=== PATIENT | male | born 1945 | race Caucasian/White ===

== ENCOUNTER 2017-01-27 10:00 | Outpatient (RCR) | payer MEDICARE, BC | END 2017-01-27 11:27 | disposition home or self-care (01) | LOC: PT 10:00 | DX: M25.562 Pain in left knee (principal); M17.12 Unilateral primary osteoarthritis, left knee ==

== ENCOUNTER 2017-11-03 10:30 | Outpatient (RCR) | payer MEDICARE, BC | END 2017-11-03 11:00 | disposition still patient (30) | LOC: PT 10:30 | DX: Z47.1 Aftercare following joint replacement surgery (principal); Z96.652 Presence of left artificial knee joint | CPT/HCPCS: G8978-GP; G8979-GP ==

== ENCOUNTER 2018-11-22 18:25 | Inpatient (IN) | payer MEDICARE, BC ==
[~2018-11-22] VITALS: Ht 180.3 cm; Wt 98.4 kg
[2018-11-23 16:00] VITALS: BP 116/79; BP 168/97
[2018-11-23] MEDS ORDERED: LASIX20 M1 PO (16:28)
[2018-11-23] MEDS ORDERED: KLOR-CON 1010 MEQ ×2 (16:28→16:29)
[2018-11-23] MEDS ORDERED: ULTRAM50 M1 PO (16:30)
[2018-11-23] MEDS ORDERED: METOPROLOL TAR100 M1 PO (16:32)
[2018-11-23] MEDS ORDERED: PHARMASSURE FIS1 SGL PO (16:33)
[2018-11-23] MEDS ORDERED: PROAIR HFA0.09 MG/AC IH (16:33)
[2018-11-23] MEDS ORDERED: CHILDREN'S ASPI81 M1 PO (16:33)
[2018-11-23] MEDS ORDERED: FLUVASTATIN40 MG PO (16:33)
[2018-11-23] MEDS ORDERED: MULTIVITAMIN1 SGL PO (16:34)
[2018-11-23] MEDS ORDERED: OMEPRAZOLE40 MG PO (16:44)
[2018-11-23] MEDS ORDERED: PROBIOTIC1 EAC1 PO (16:44)
[2018-11-23] MEDS ORDERED: NITRO-DUR1 EACH TD (16:44)
[2018-11-23] MEDS ORDERED: THEO-24 30300 MG/CAP PO (16:45)
[2018-11-23] MEDS ORDERED: VENLAFAXINE225 MG PO (16:46)
[2018-11-23] MEDS ORDERED: MASON NATURAL2000 IU PO (16:51)
[2018-11-23] MEDS ORDERED: VITAMIN C PURE500 M1 PO (16:51)
[2018-11-23] MEDS ORDERED: CORTIZONE-1028 GM TP (16:53)
[2018-11-23 18:37] VITALS: BP 92/66
[2018-11-23 18:45] VITALS: BP 117/81
[2018-11-24 06:23] VITALS: BP 137/80
[2018-11-24 06:27] LABS: URINE APPEARANCE CLEAR; URINE BILIRUBIN NEGATIVE (NEGATIVE); URINE BLOOD NEGATIVE (NEGATIVE); URINE COLOR YELLOW; URINE GLUCOSE NEGATIVE (NEGATIVE); URINE KETONE NEGATIVE (NEGATIVE); URINE LEUKOCYTE ESTERASE NEGATIVE (NEGATIVE); URINE NITRATE NEGATIVE (NEGATIVE); URINE PROTEIN(semi-quant) NEGATIVE (NEGATIVE); URINE UROBILINOGEN NORMAL (NORMAL); URINE WBC 0 /hpf (0-3)
[2018-11-24 07:29] LABS: ALBUMIN 3.6 g/dL (3.5-5.0); CALCIUM 9.2 mg/dL (8.4-10.2); TOTAL BILIRUBIN 0.7 mg/dL (0.2-1.3); TOTAL PROTEIN 6.6 g/dL (6.3-8.2)
[2018-11-24 08:06] LABS: HEMATOCRIT 29.2 % (42.0-52.0); HEMOGLOBIN 9.2 g/dL (13.5-18.0); MEAN CELL VOLUME 90 fl (78-100); MEAN CORPUSCULAR HEMOGLOBIN 29 pg (27-31); MEAN CORPUSCULAR HGB CONC 32 g/dL (33-37); MEAN PLATELET VOLUME 11.4 fl (7.4-10.4); PLATELET COUNT 204 K/mm3 (130-400); RED BLOOD COUNT 3.23 M/mm3 (4.20-5.60); RED CELL DISTRIBUTION WIDTH 14.3 % (11.5-14.5); WHITE BLOOD COUNT 5.1 K/mm3 (4.8-10.8)
[2018-11-24 09:14] LABS: BAND 1 % (0-10); LYMPHOCYTE 21 % (20-51); MONOCYTE 9 % (3-10); NEUTROPHILS 57 % (42-75)
[2018-11-24 09:15] LABS: MYELOCYTE 2 % (0-0); NUCLEATED RED BLOOD CELL 1 (0-6); POLYCHROMASIA 1+
[2018-11-24 18:31] VITALS: BP 127/78
[2018-11-25 06:11] VITALS: BP 115/85
[2018-11-25 18:26] VITALS: BP 113/70
[2018-11-26 06:12] VITALS: BP 94/60
[2018-11-26 18:16] VITALS: BP 122/73
[2018-11-27 06:21] VITALS: BP 130/79
[2018-11-27 18:49] VITALS: BP 107/62
[2018-11-28 05:58] VITALS: BP 119/77
[2018-11-28 18:00] VITALS: BP 106/71
[2018-11-29 06:21] VITALS: BP 106/68
[2018-11-29 16:57] VITALS: BP 101/65
[2018-11-30 06:21] VITALS: BP 103/65
[2018-11-30] MEDS ORDERED: ULTRAM50 M1 PO (13:15)
[2018-11-30] MEDS ORDERED: TRAMADOL 50 MG TAB PO (13:15)
[2018-11-30] MEDS ORDERED: KLOR-CON 1010 MEQ PO (13:15)
[2018-11-30] MEDS ORDERED: METOPROLOL TAR100 M1 PO (13:15)
[2018-11-30] MEDS ORDERED: LASIX20 M1 PO (13:15)
== END 2018-11-30 13:00 | disposition home or self-care (01) | DRG 948 ==
LOC: MED/SURG 18:25
PROVIDERS: Nurse Practitioner Family; ADMIT Physician Assistant
DX: R53.81 Other malaise (principal); J90 Pleural effusion, not elsewhere classified; Z66 Do not resuscitate; I25.10 Atherosclerotic heart disease of native coronary artery without angina pectoris; Z95.1 Presence of aortocoronary bypass graft; I10 Essential (primary) hypertension; J44.9 Chronic obstructive pulmonary disease, unspecified; E78.2 Mixed hyperlipidemia; R73.03 Prediabetes; Z85.46 Personal history of malignant neoplasm of prostate; G47.33 Obstructive sleep apnea (adult) (pediatric); F32.9 Major depressive disorder, single episode, unspecified; R35.0 Frequency of micturition; R39.15 Urgency of urination; F17.210 Nicotine dependence, cigarettes, uncomplicated
CPT/HCPCS: J1650

== ENCOUNTER 2018-12-24 22:53 | Emergency (ER) | payer MEDICARE, BC ==
[~2018-12-24] VITALS: Ht 180.3 cm; Wt 97.7 kg
[~2018-12-24 22:53] MED LIST: CHILDREN'S ASPI81 M1 PO; CORTIZONE-1028 GM TP; FLUVASTATIN40 MG PO; KLOR-CON 1010 MEQ; KLOR-CON 1010 MEQ PO; LASIX20 M1 PO; MASON NATURAL2000 IU PO; METOPROLOL TAR100 M1 PO; MULTIVITAMIN1 SGL PO; NITRO-DUR1 EACH TD; OMEPRAZOLE40 MG PO; PHARMASSURE FIS1 SGL PO; PROAIR HFA0.09 MG/AC IH; PROBIOTIC1 EAC1 PO; THEO-24 30300 MG/CAP PO; TRAMADOL 50 MG TAB PO; ULTRAM50 M1 PO; VENLAFAXINE225 MG PO; VITAMIN C PURE500 M1 PO
[2018-12-24 23:31] LABS: HEMATOCRIT 38.7 % (42.0-52.0); HEMOGLOBIN 12.6 g/dL (13.5-18.0); MEAN CELL VOLUME 87 fl (78-100); MEAN CORPUSCULAR HEMOGLOBIN 28 pg (27-31); MEAN CORPUSCULAR HGB CONC 33 g/dL (33-37); MEAN PLATELET VOLUME 11.2 fl (7.4-10.4); PLATELET COUNT 141 K/mm3 (130-400); RED BLOOD COUNT 4.44 M/mm3 (4.20-5.60); RED CELL DISTRIBUTION WIDTH 13.9 % (11.5-14.5)
[2018-12-24 23:45] LABS: ALBUMIN 4.1 g/dL (3.5-5.0); CALCIUM 9.2 mg/dL (8.4-10.2); POTASSIUM 4.2 mmol/L (3.6-5.0); TOTAL BILIRUBIN 0.5 mg/dL (0.2-1.3); TOTAL PROTEIN 7.7 g/dL (6.3-8.2)
[2018-12-24 23:46] LABS: BAND 0 % (0-10); LYMPHOCYTE 20 % (20-51); MONOCYTE 17 % (3-10); NEUTROPHILS 52 % (42-75)
[2018-12-25 00:38] VITALS: BP 123/71
== END 2018-12-25 00:38 | disposition home or self-care (01) ==
LOC: ED 22:53
PROVIDERS: Family Medicine
DX: R07.89 Other chest pain (principal); I25.10 Atherosclerotic heart disease of native coronary artery without angina pectoris; I10 Essential (primary) hypertension; E78.5 Hyperlipidemia, unspecified; G47.30 Sleep apnea, unspecified; J44.9 Chronic obstructive pulmonary disease, unspecified; Z79.82 Long term (current) use of aspirin

== ENCOUNTER 2019-01-06 11:39 | Emergency (ER) | payer MEDICARE, BC ==
[~2019-01-06] VITALS: Ht 180.3 cm; Wt 101.3 kg
[2019-01-06] MEDS ORDERED: ACETAMINOPHEN500 M5 PO (12:13)
[2019-01-06] MEDS ORDERED: BENADRYL PO (12:14)
[2019-01-06] MEDS ORDERED: MUCUS RELIEF600 MG PO (12:16)
[2019-01-06] MEDS ORDERED: MOTRIN IB200 M2 PO (12:16)
[2019-01-06] MEDS ORDERED: LOVASTATIN40 M1 PO (12:17)
[2019-01-06 12:41] LABS: HEMATOCRIT 37.7 % (42.0-52.0); HEMOGLOBIN 12.6 g/dL (13.5-18.0); MEAN CELL VOLUME 84 fl (78-100); MEAN CORPUSCULAR HEMOGLOBIN 28 pg (27-31); MEAN CORPUSCULAR HGB CONC 33 g/dL (33-37); MEAN PLATELET VOLUME 11.6 fl (7.4-10.4); PLATELET COUNT 138 K/mm3 (130-400); RED BLOOD COUNT 4.48 M/mm3 (4.20-5.60); RED CELL DISTRIBUTION WIDTH 13.4 % (11.5-14.5); WHITE BLOOD COUNT 4.9 K/mm3 (4.8-10.8)
[2019-01-06 12:46] LABS: CALCIUM 9.7 mg/dL (8.8-10.0); POTASSIUM 3.9 mmol/L (3.5-5.1)
[2019-01-06 12:50] LABS: LYMPHOCYTE 25 % (20-51); MONOCYTE 16 % (3-10); NEUTROPHILS 55 % (42-75)
[2019-01-06 13:26] LABS: URINE APPEARANCE CLOUDY; URINE BILIRUBIN NEGATIVE (NEGATIVE); URINE BLOOD 250 ery/uL (NEGATIVE); URINE COLOR YELLOW; URINE GLUCOSE NEGATIVE (NEGATIVE); URINE KETONE NEGATIVE (NEGATIVE); URINE NITRATE NEGATIVE (NEGATIVE); URINE PROTEIN(semi-quant) 1+ mg/dL (NEGATIVE); URINE UROBILINOGEN NORMAL (NORMAL)
[2019-01-06 13:27] LABS: URINE LEUKOCYTE ESTERASE TRACE (NEGATIVE)
[2019-01-06 14:01] VITALS: BP 120/77
== END 2019-01-06 14:02 | disposition home or self-care (01) ==
LOC: ED 11:39
PROVIDERS: Family Medicine
DX: I82.402 Acute embolism and thrombosis of unspecified deep veins of left lower extremity (principal); R31.9 Hematuria, unspecified; I25.10 Atherosclerotic heart disease of native coronary artery without angina pectoris; G47.30 Sleep apnea, unspecified; Z79.82 Long term (current) use of aspirin; Z79.1 Long term (current) use of non-steroidal anti-inflammatories (NSAID); Z90.49 Acquired absence of other specified parts of digestive tract; Z95.5 Presence of coronary angioplasty implant and graft

== ENCOUNTER 2019-02-28 11:00 | Outpatient (RCR) | payer MEDICARE, BC ==
[~2019-02-28 11:00] MED LIST changes: +ACETAMINOPHEN500 M5 PO; +BENADRYL PO; +LOVASTATIN40 M1 PO; +MOTRIN IB200 M2 PO; +MUCUS RELIEF600 MG PO
== END 2019-02-28 12:00 | disposition still patient (30) ==
LOC: CARDREHAB 11:00
DX: Z95.1 Presence of aortocoronary bypass graft (principal)

== ENCOUNTER 2022-03-16 17:12 | Emergency (ER) | payer MEDICARE, BC ==
[2022-03-16 17:59] LABS: BASO # 0.02 K/mm3 (0.02-0.10); EOS # 0.09 K/mm3 (0.04-0.40); EOS % 1.8 % (0.0-4.0); HEMATOCRIT 36.7 % (42.0-52.0); HEMOGLOBIN 12.8 g/dL (13.5-18.0); LYMPH# 1.34 K/mm3 (1.50-4.00); MEAN CELL VOLUME 85 fl (78-100); MEAN CORPUSCULAR HEMOGLOBIN 30 pg (27-31); MEAN CORPUSCULAR HGB CONC 35 g/dL (33-37); MEAN PLATELET VOLUME 12.2 fl (7.4-10.4); MONO # 0.99 K/mm3 (0.20-0.80); NEU # 2.63 K/mm3 (1.40-6.50); PLATELET COUNT 101 K/mm3 (130-400); RED BLOOD COUNT 4.33 M/mm3 (4.20-5.60); RED CELL DISTRIBUTION WIDTH 12.6 % (11.5-14.5); WHITE BLOOD COUNT 5.1 K/mm3 (4.8-10.8)
[2022-03-16 18:11] LABS: ALBUMIN 3.6 g/dL (3.4-4.8)
[2022-03-16 18:12] LABS: POTASSIUM 4.3 mmol/L (3.5-5.1)
[2022-03-16 18:13] LABS: CALCIUM 9.1 mg/dL (8.3-10.5)
[2022-03-16 18:14] LABS: TOTAL PROTEIN 7.2 g/dL (6.2-8.1)
[2022-03-16 18:16] LABS: TOTAL BILIRUBIN 0.4 mg/dL (0.2-1.2)
[2022-03-16] MEDS ORDERED: YUPELRI175 MCG/3 IH (19:31)
[2022-03-16] MEDS ORDERED: MELOXICAM15 MG PO (19:31)
[2022-03-16] MEDS ORDERED: VENLAFAXINE HC100 MG PO (19:32)
[2022-03-16 19:36] LABS: PROTHROMBIN TIME 10.1 SECONDS (9.0-12.0)
[2022-03-16 19:39] LABS: D-DIMER 2.63 mg/L FEU (0.15-0.50)
[2022-03-16 21:33] VITALS: BP 122/68
== END 2022-03-16 21:33 | disposition home or self-care (01) ==
LOC: ED 17:12
PROVIDERS: Physician Assistant
DX: I82.451 Acute embolism and thrombosis of right peroneal vein (principal); I82.441 Acute embolism and thrombosis of right tibial vein; R79.1 Abnormal coagulation profile; Z87.891 Personal history of nicotine dependence; Z79.01 Long term (current) use of anticoagulants; Z91.040 Latex allergy status
CPT/HCPCS: J1650; Q9967

== ENCOUNTER 2023-12-26 11:07 | Outpatient (RCR) | payer MEDICARE, BC ==
[~2023-12-26 11:07] MED LIST changes: +MELOXICAM15 MG PO; +VENLAFAXINE HC100 MG PO; +YUPELRI175 MCG/3 IH
== END 2023-12-27 | disposition home or self-care (01) ==
LOC: PT
DX: M48.02 Spinal stenosis, cervical region (principal)

== ENCOUNTER 2024-01-03 08:00 | Outpatient (RCR) | payer MEDICARE, BC | END 2024-01-27 | LOC: PT | DX: M48.02 Spinal stenosis, cervical region (principal) ==

== ENCOUNTER 2024-05-19 10:40 | Emergency (ER) | payer MEDICARE, BC ==
[~2024-05-19] VITALS: Ht 177.8 cm; Wt 104.0 kg
[2024-05-19 11:26] LABS: BASO # 0.01 K/mm3 (0.02-0.10); EOS # 0.06 K/mm3 (0.04-0.40); EOS % 0.9 % (0.0-4.0); HEMOGLOBIN 14.2 g/dL (13.5-18.0); LYMPH# 1.68 K/mm3 (1.50-4.00); MEAN CELL VOLUME 85 fl (78-100); MEAN CORPUSCULAR HEMOGLOBIN 29 pg (27-31); MEAN CORPUSCULAR HGB CONC 34 g/dL (33-37); MEAN PLATELET VOLUME 12.3 fl (7.4-10.4); MONO # 1.14 K/mm3 (0.20-0.80); NEU # 4.05 K/mm3 (1.40-6.50); PLATELET COUNT 84 K/mm3 (130-400); RED BLOOD COUNT 4.95 M/mm3 (4.20-5.60); RED CELL DISTRIBUTION WIDTH 13.3 % (11.5-14.5)
[2024-05-19 11:34] LABS: CALCIUM 9.6 mg/dL (8.3-10.5)
[2024-05-19 11:35] LABS: TOTAL PROTEIN 7.4 g/dL (6.2-8.1)
[2024-05-19 11:37] LABS: TOTAL BILIRUBIN 0.5 mg/dL (0.2-1.2)
[2024-05-19 11:50] LABS: D-DIMER 4.09 mg/L FEU (0.15-0.50)
[2024-05-19] MEDS ORDERED: Iohexol 350 - 100 ML VIAL IV ONE (12:02)
[2024-05-19 12:57] LABS: PH-URINE 5.5 (5.0 - 8.0); URINE APPEARANCE CLEAR (CLEAR); URINE BILIRUBIN NEGATIVE (NEGATIVE); URINE BLOOD NEGATIVE (NEGATIVE); URINE COLOR YELLOW (YELLOW); URINE GLUCOSE NEGATIVE (NEGATIVE); URINE KETONE NEGATIVE (NEGATIVE); URINE LEUKOCYTE ESTERASE NEGATIVE (NEGATIVE); URINE NITRATE NEGATIVE (NEGATIVE); URINE PROTEIN(semi-quant) NEGATIVE (NEGATIVE); URINE WBC 0-1 /hpf (0-3)
[2024-05-19] MEDS ORDERED: XARELTO15 MG PO (13:23)
[2024-05-19] MEDS ORDERED: Rivaroxaban 15 MG TAB PO ONE ×2 (13:30→19:15)
[2024-05-19 13:41] VITALS: BP 118/77
== END 2024-05-19 13:41 | disposition home or self-care (01) ==
LOC: ED 10:40
PROVIDERS: Family Medicine
DX: R07.89 Other chest pain (principal); I26.99 Other pulmonary embolism without acute cor pulmonale; Z87.891 Personal history of nicotine dependence; Z91.040 Latex allergy status
CPT/HCPCS: Q9967

== ENCOUNTER 2024-10-19 14:40 | Emergency (ER) | payer MEDICARE, BC ==
[~2024-10-19] VITALS: Ht 180.3 cm; Wt 103.9 kg
[~2024-10-19 14:40] MED LIST changes: +XARELTO15 MG PO
[2024-10-19] MEDS ORDERED: HYDROcodone/Acetaminophen 10-325 MG TAB PO ONE (15:45)
[2024-10-19] MEDS ORDERED: TIZANIDINE HYDRO4 MG PO (16:21)
[2024-10-19] MEDS ORDERED: VOLTAREN ARTHRI20 GM TP (16:21)
[2024-10-19 16:40] VITALS: BP 135/90
== END 2024-10-19 16:35 | disposition home or self-care (01) ==
LOC: ED 14:40
DX: M19.012 Primary osteoarthritis, left shoulder (principal); Z95.1 Presence of aortocoronary bypass graft; Z91.040 Latex allergy status; Z79.01 Long term (current) use of anticoagulants